=== PATIENT | female | born 1975 | race Caucasian/White ===

== ENCOUNTER 2022-04-24 04:17 | Day surgery (SDC) | payer OTHER ==
[2022-04-24] MEDS ORDERED: ceFAZolin SODIUM 1 GM VIAL ONE ×2 (11:46→21:00)
[2022-04-24] MEDS ORDERED: CEFAZOLIN 2 GM in DEXTROSE 5%-WATER - 100 ML IVPB ONE (12:00)
[2022-04-24] MEDS ORDERED: BUPIVACAINE LIPOSOME/PF (EXPAREL) 266 MG/20 ML VIAL ONE (13:13)
[2022-04-24] MEDS ORDERED: MIDAZOLAM HCL 2 MG/2 ML SINGLE DOSE VIAL ONE ×3 (13:14)
[2022-04-24] MEDS ORDERED: BUPIVACAINE HCL/PF 0.5% (5MG/ML) 10 ML VIAL ONE (13:14)
[2022-04-24] MEDS ORDERED: DEXAMETHASONE SOD PHOSPHATE 4 MG/1 ML VIAL ONE ×2 (13:23→13:59)
[2022-04-24] MEDS ORDERED: LIDOCAINE HCL 2% 100 MG/5 ML DISP.SYRIN ONE (13:23)
[2022-04-24] MEDS ORDERED: SUCCINYLCHOLINE CHLORIDE 200 MG/10 ML SYRINGE ONE (13:24)
[2022-04-24] MEDS ORDERED: ROCURONIUM BROMIDE 50 MG/5 ML SYRINGE ONE (13:24)
[2022-04-24] MEDS ORDERED: PROPOFOL 20 ML ONE ×2 (13:24)
[2022-04-24] MEDS ORDERED: ceFAZolin SODIUM 1 GM VIAL IVPB ONE (13:45)
[2022-04-24] MEDS ORDERED: GLYCOPYRROLATE 0.2 MG/1 ML VIAL ONE (16:02)
[2022-04-24] MEDS ORDERED: NEOSTIGMINE METHYLSULFATE 0.5 MG/ML - 10 ML MDV ONE (16:02)
[2022-04-24] MEDS ORDERED: DOCUSATE SODIUM 100 MG CAPSULE (FP) PO PRN (16:03)
[2022-04-24] MEDS ORDERED: ONDANSETRON 4 MG/2 ML VIAL IVPUSH PRN ×2 (16:03→16:30)
[2022-04-24] MEDS ORDERED: SIMETHICONE 80 MG TAB.CHEW (FP) PO PRN (16:03)
[2022-04-24] MEDS ORDERED: ACETAMINOPHEN 325 MG TABLET (FP) PO PRN (16:03)
[2022-04-24] MEDS ORDERED: BISACODYL 5 MG TABLET.DR (FP) PO PRN (16:03)
[2022-04-24] MEDS ORDERED: oxyCODONE HCL 5 MG TABLET PO PRN (16:03)
[2022-04-24] MEDS ORDERED: KETOROLAC TROMETHAMINE 30 MG/1 ML VIAL IVPUSH PRN (16:03)
[2022-04-24] MEDS ORDERED: PROMETHAZINE HCL 25 MG/1 ML VIAL IVPUSH PRN (16:30)
[2022-04-24] MEDS: ACETAMINOPHEN 1000 MG/100 ML BAG IVPB SCH (17:15)
[2022-04-24] MEDS ORDERED: CEFAZOLIN 1 GM in DEXTROSE 5%-WATER - 1 GM/50 ML IVPB IVPB SCH (20:00)
[2022-04-24] MEDS ORDERED: DEXTROSE 5%-WATER - 50 ML IVPB ONE (21:01)
[2022-04-24] MEDS: LACTATED RINGERS SOLUTION 1,000 ML IV SCH (21:25)
[2022-04-24] MEDS: CEFAZOLIN 1 GM in DEXTROSE 5%-WATER - 1 GM/50 ML IVPB IVPB SCH (21:27)
[2022-04-24 23:26] VITALS: BMI 28.2
[2022-04-25] MEDS: ACETAMINOPHEN 1000 MG/100 ML BAG IVPB SCH ×2 (00:06→09:17)
[2022-04-25] MEDS: LACTATED RINGERS SOLUTION 1,000 ML IV SCH (03:42)
[2022-04-25] MEDS ORDERED: ceFAZolin SODIUM 1 GM VIAL ONE (06:02)
[2022-04-25] MEDS ORDERED: DEXTROSE 5%-WATER - 50 ML IVPB ONE (06:03)
[2022-04-25] MEDS: CEFAZOLIN 1 GM in DEXTROSE 5%-WATER - 1 GM/50 ML IVPB IVPB SCH (06:04)
[2022-04-25] MEDS ORDERED: ENOXAPARIN NA (PORCINE) 40 MG/0.4 ML DISP.SYRIN SQ SCH (10:00)
[2022-04-25 10:41] LABS: HEMATOCRIT 30.7 % (32.4-45.2); MCH 25.3 pg (25.7-33.7); MCHC 32.6 g/dl (32.0-36.0); MEAN CELL VOLUME 77.6 fl (80-96); PLATELET COUNT 248 10^3/uL (134-434); RBC 3.96 M/mm3 (3.60-5.2); RDW 17.3 % (11.6-15.6); WHITE BLOOD COUNT 6.7 K/mm3 (4.0-10.0)
[2022-04-25] MEDS ORDERED: IBUPROFEN 600 MG TABLET (FP) PO PRN (11:01)
[2022-04-25 11:44] VITALS: BP 103/50; PULSE 71; RESP 20; TEMP 98
[2022-04-25 13:07] LABS: BLOOD UREA NITROGEN 8.1 mg/dL (7-18); CALCIUM 8.6 mg/dL (8.5-10.1)
[2022-04-25 13:11] LABS: CREATININE 0.7 mg/dL (0.55-1.3)
[2022-04-25] MEDS ORDERED: ACETAMINOPHEN 500 MG TABLET (FP) PO SCH (17:00)
== END 2022-04-25 16:02 | disposition home or self-care (01) ==
LOC: JASUSAT 04:17 → JASU-SURG 04:17 → J6S 20:08 → JASUSAT 04-25 16:01
PROVIDERS: ATTEND Specialist
PROC: 8E0W4CZ Robotic Assisted Procedure of Trunk Region, Percutaneous Endoscopic Approach (ICD-10-PCS; 2022-04-24)
PROC: 0UT9FZZ Resection of Uterus, Via Natural or Artificial Opening With Percutaneous Endoscopic Assistance (ICD-10-PCS; principal; 2022-04-24 13:00)
PROC: 0UT7FZZ Resection of Bilateral Fallopian Tubes, Via Natural or Artificial Opening With Percutaneous Endoscopic Assistance (ICD-10-PCS; 2022-04-24 13:00)
DX: D25.1 Intramural leiomyoma of uterus (principal); N93.9 Abnormal uterine and vaginal bleeding, unspecified; N99.4 Postprocedural pelvic peritoneal adhesions
CPT/HCPCS: 58552; S2900; 36415; 80048; 81025; 85027; 86900; 88307-TC; 94760